=== PATIENT | female | born 2000 ===

== ENCOUNTER 2023-10-17 20:23 | Emergency (ER) | payer OTHER, SELFPAY ==
--- NOTE | ~2023-10-17 | XR_ITS ---
EXAMINATION: XR chest 2V DATE: 10/17/2023 21:18 INDICATION: Cough, chills and shortness of breath TECHNIQUE: PA and lateral views of the chest were obtained. COMPARISON: None FINDINGS: Lung volumes are small with no focal airspace opacities, pulmonary edema, pleural effusion or pneumot horax. The cardiomediastinal silhouette is normal. Mild thoracic spondylosis. IMPRESSION: 1. Small lung volumes. No other acute cardiopulmonary disease. Reviewed, dictated and finalized at location A. [employer] RELATIONS REPRESENTATIVE
[2023-10-17 20:31] VITALS: BP 143/87; PULSE 89; RESP 20; TEMP 36.3; O2SAT 99
[2023-10-17 21:28] LABS: Influenza A QL RT-PCR Positive (Negative); Influenza B QL RT-PCR Negative (Negative); SARS-CoV-2 RNA PCR Negative (Negative)
[2023-10-17 23:31] VITALS: BP 118/87; PULSE 104; RESP 20; O2SAT 100
--- NOTE | 2023-10-18 00:40 | PC.NURSE ---
patient states she does not want to wait any longer and left from triage area
== END 2023-10-18 00:40 | disposition left against medical advice (07) ==
LOC: ANHED 10-18 00:43
PROVIDERS: Emergency Provider Emergency Medicine
DX: R06.02 Shortness of breath (principal); Z20.822 Contact with and (suspected) exposure to COVID-19
CPT/HCPCS: 71046; 87636; 99199; 99283